=== PATIENT | female | born 1955 | race Caucasian/White ===

== ENCOUNTER → 2017-07-31 | Outpatient (CLI) | payer OTHER ==
--- NOTE | 2017-07-31 13:33 | DIAGNOSTIC IMAGING REPORT ---
CERVICAL SPINE MRI HISTORY: Neck pain with radiating into shoulders and left arm. TECHNIQUE: Multiplanar multisequence MRI of the cervical spine was performed without the use of contrast. Flexion and extension views were also obtained. COMPARISON STUDY: None. FINDINGS: There is slight reversal of the normal lordotic curvature. 1 mm of anterolisthesis of C4 on C5. Prevertebral soft tissues and the C1-C2 interval are intact. The visualized posterior fossa is unremarkable. Mild disc space narrowing at C3-C4. Moderate disc space narrowing at C4-C5. Severe disc space narrowing at C5-C6 and C6-C7. Mild disc space narrowing at C7-T1. No fractures identified within the cervical spine. Mild to moderate facet degenerative changes most pronounced at the left C3-C4 level are noted. C2-C3: Mild right and moderate left neural foraminal narrowing due to the uncovertebral and facet hypertrophy. No central canal narrowing. C3-C4: Small broad-based posterior disc osteophyte complex asymmetric to the left. This results in partial effacement of the anterior thecal sac without significant cord deformity. There is mild right and severe left neural foraminal narrowing. This remains unchanged throughout flexion and extension. C4-C5: Broad-based posterior disc osteophyte complex which abuts and results in mild anterior cord deformity. There may be slight increased cord signal at this location suggestive of discogenic myelomalacia. Mild right and severe left neural foraminal narrowing. This is not significantly change on flexion or extension. C5-C6: Small broad-based posterior disc osteophyte complex which abuts and results in minimal anterior cord deformity. There is severe bilateral neural foraminal narrowing. This remains unchanged throughout flexion and extension. C6-C7: Broad-based posterior disc osteophyte complex asymmetric to the right. This results in moderate central canal narrowing with moderate cord deformity. The right posterior osteophyte results in severe right neural foraminal narrowing. There is moderate left-sided neural foraminal narrowing. This is not significantly change throughout flexion and extension. C7-T1: No significant central canal or neural foraminal narrowing. IMPRESSION: 1. Multilevel cervical spondylosis as described above most pronounced at the C6-C7 level where there is moderate central canal narrowing with moderate cord deformity. This is similar throughout flexion and extension. 2. There is 1 mm of anterolisthesis of C4 on C5. 3. Slight reversal of the normal lordotic curvature. 4. Slight increased signal within the cord at the C4-C5 level. This is consistent with myelomalacia likely secondary to the degenerative change. Electronically signed by: Morgan Pulido M.D. 07/31/2017 1:31 PM Dictated Date/Time: 07/31/2017 1:21 PM
== END | disposition home or self-care (01) ==
LOC: C.MRIBC 11:15
PROVIDERS: ATTEND Neurological Surgery
DX: M48.02 Spinal stenosis, cervical region (principal); M47.892 Other spondylosis, cervical region; M43.8X9 Other specified deforming dorsopathies, site unspecified